=== PATIENT | female | born 1945 | race Caucasian/White ===

== ENCOUNTER → 2021-04-16 10:32 | Outpatient (CLI) | payer MEDICARE, SELFPAY ==
--- NOTE | ~2021-04-16 | MR_ITS ---
EXAMINATION: MR brain IAC wo/w con DATE: 04/16/2021 11:44 INDICATION: Dizziness and giddiness. Left-sided Meniere's disease. Left-sided hearing loss. TECHNIQUE: Magnetic resonance imaging (MRI) of the brain, brainstem, and internal auditory canals was performed without and with 10 mL MultiHance intravenous contrast. Sequences included sagittal and ax ial T1-weighted FSE, axial diffusion-weighted FS EPI, axial T2*-weighted GRE, axial T2-weighted FLAIR Propeller, axial T2-weighted Propeller, small vwoac-vh-fdzv coronal FIESTA, small cgpxu-dz-fiwp doris nal T1-weighted FSE, and small rlijd-rl-yugz axial T1-weighted SPGR. Postcontrast sequences included axial T1-weighted FSE, small rcxag-wl-enew coronal T1-weighted FSE, and small vhwjo-mk-iskk axial T1- weighted SPGR. Apparent diffusion coefficient (ADC) maps were created. COMPARISON: Brain MRI 04/14/2019 FINDINGS: There are scattered areas of nonspecific increased T2-weighted signal intensity in the cere bral white matter and natalie. Again seen is diffuse pachymeningeal thickening and enhancement. Again se en are foci of old microhemorrhage in the brain including in the deep garcia nuclei. There is no acute infarction or abnormal intracranial mass lesion. The ventricles are normal in size. There is mucosal thickening in the paranasal sinuses. Right maxillary sinus is small and completely opacified with rig ht-sided enophthalmos, consistent with silent sinus syndrome. The internal auditory canals and inner and middle ears are normal. The mastoid air cells are normal. IMPRESSION: 1. Chronic diffuse pachymeningeal thickening and enhancement. This finding is most commonly secondary to prior lumbar puncture or spine surgery. This finding may be a feature of intracranial hypertensio n. 2. Worsened moderate nonspecific cerebral white matter disease and pontine disease, which likely repr esents chronic small vessel ischemic disease. 3. Scattered foci of old microhemorrhage in the brain again seen. This finding is most commonly seen with chronic hypertensive encephalopathy. 4. Silent sinus syndrome involving left maxillary sinus. Reviewed, dictated and finalized at location A. IO CLINICIAN IMPRESSION: 1. Chronic diffuse pachymeningeal thickening and enhancement. This finding is m ost commonly secondary to prior lumbar puncture or spine surgery. This finding may be a feature of intracranial hypertension. 2. Worsened moderate nonspecific cerebral white matter disease and pontine dise ase, which likely represents chronic small vessel ischemic disease. 3. Scattered foci of old microhemorrhage in the brain again seen. This finding is most commonly seen with chronic hypertensive encephalopathy. 4. Silent sinus syndrome involving left maxillary sinus.
[2021-04-16 11:08] LABS: Estimated Glomerular Filt Rate > 60
== END ==
PROVIDERS: PCP Family Medicine; Visit Provider Otolaryngology
DX: H81.02 Meniere's disease, left ear (principal); H90.A22 Sensorineural hearing loss, unilateral, left ear, with restricted hearing on the contralateral side; R93.0 Abnormal findings on diagnostic imaging of skull and head, not elsewhere classified
CPT/HCPCS: 70553; A9577

== ENCOUNTER 2021-06-21 10:34 | Emergency (ER) | payer MEDICARE, SELFPAY ==
--- NOTE | ~2021-06-21 | CT_ITS ---
EXAMINATION: CT abdomen pelvis w con EXAM DATE: 06/21/2021 13:21 INDICATION: LLQ abd pain . TECHNIQUE: Spiral CT of the abdomen and pelvis was performed following intravenous injection of 100 m L Omnipaque 350. Axial, coronal and sagittal images of the abdomen and pelvis were reviewed. The do se-length product (DLP) for this examination was 335.67 mGy-cm. The exposure was tailored according to patient size (auto mA exposure control), and iterative reconstruction (ASIR) was used as additiona l dose reduction technique. There is no prior study for comparison. FINDINGS: There is a 1 cm cystic region in the pancreatic uncinate process. The differential diagnosi s includes pseudocyst, intraductal papillary mucinous neoplasm (IPMN), mucinous cystic neoplasm (MCN) , and the less common serous cystadenoma and neuroendocrine tumor. Correlate for history of pancreati tis. The liver, spleen, adrenal glands are unremarkable. Gallbladder is unremarkable. No biliary obstruc tion. Portal and splenic veins are patent. Kidneys enhance symmetrically. There is no hydronephros is. There is a left renal 6-7 cm cyst. The uterus is not identified and has likely been surgically r esected. The bladder is unremarkable. There is no retroperitoneal or pelvic lymphadenopathy. Ther e is mild scattered arteriosclerotic disease. The appendix is normal. Mild scattered colonic diverticulosis with possible mild acute uncomplicated diverticulitis at the descending/sigmoid colonic junction. There is small sliding gastroesophageal hi atal hernia. There is expected amount of colonic stool. No free intraperitoneal gas. The heart i s normal in size. There are no pericardial or pleural effusions. The lung bases are unremarkable. Mild thoracolumbar scoliosis. Moderate disc disease. IMPRESSION: 1. Possible mild uncomplicated descending/sigmoid colonic diverticulitis. 2. Incidental pancreatic uncinate cystic region, differential diagnosis above. Consider 1-2 year fol low-up CT or MRI. 3. Small gastroesophageal hiatal hernia. Reviewed, dictated and finalized at location A. OMER SERVICE REPRESENTATIVE TELLER IMPRESSION: 1. Possible mild uncomplicated descending/sigmoid colonic diverticulitis. 2. Incidental pancreatic uncinate cystic region, differential diagnosis above. Consider 1-2 year follow-up CT or MRI. 3. Small gastroesophageal hiatal hernia.
[2021-06-21 10:43] VITALS: BP 131/99; PULSE 102; RESP 15; TEMP 36.7; O2SAT 99
[2021-06-21] MEDS: SODIUM CHLORIDE 0.9% IV 500 ML 999 ML IV CONT (12:38)
--- NOTE | 2021-06-21 12:41 | ED.FEMALEGU ---
HPI - Female Genitourinary General Chief complaint: Urogenital-Female Stated complaint: trouble urinating Time Seen by Provider: 06/21/21 11:55 Source: patient History of Present Illness HPI Narrative: Patient presents with difficulty urinating over the past 3 days. 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 However the past 3 days has not been as effective and she took her pessary out and attempt to help herself urinate. The past 3 days she has had increased abdominal pressure but denies a pain. She reports some nausea but attributes that to her M?ni?re's which has been acting up over the past month. She denies any fevers, cough, congestion, chest pain, shortness of breath Related Data Allergies Allergy/AdvReac Type Severity Reaction Status Date / Time Sulfa (Sulfonamide Allergy Hives Verified 06/21/21 12:53 Antibiotics) Review of Systems Review of Systems: CONSTITUTIONAL: Denies fever, chills, or sweats. EYES: Denies visual changes, redness, or discharge. ENT: Denies rhinorrhea, congestion, sore throat, or otalgia. CARDIOVASCULAR: Denies chest pain, palpitations, or edema. RESPIRATORY: Denies cough or dyspnea. GASTROINTESTINAL: Denies vomiting, or diarrhea. GENITOURINARY: Denies dysuria or hematuria. SKIN: Denies rash or itching. MUSCULOSKELETAL: Denies back pain, joint pain, or myalgia. NEUROLOGIC: Denies headache, numbness, dizziness, or weakness. PSYCHIATRIC: Denies anxiety or depression. All systems reviewed & are unremarkable except as noted in HPI and below PMFSH Past Medical History Medical History (Updated 06/21/21 @ 13:55 by Kota Love MD) Bladder prolapse Social History Social History (Updated 06/21/21 @ 12:43 by Kota Love MD) Substance use: never Exam Narrative: GENERAL: Well-appearing, well-nourished, and in no acute distress. HEAD: Normocephalic, atraumatic. EYES: PERRLA and EOMI. ENT: Nares clear, no rhinorrhea or epistaxis. Mucous membranes moist. NECK: Supple. No masses. No JVD CHEST: Clear to auscultation. No respiratory distress. No wheezes rales or rhonchi HEART: Regular rate and rhythm. No murmur heard. Normal peripheral pulses. ABDOMEN: Mild tenderness to do on the left lower quadrant suprapubic area soft, nondistended, normal active bowel sounds. EXTREMITIES: Normal range of motion. No edema. SKIN: Warm, dry, no rash. NEURO: No focal deficits. Alert and oriented x3. PSYCH: Normal mood and affect. Course Reevaluation(s) Reevaluation #1: Patient reports feeling improved results and plan reviewed with patient. Patient is comfortable outpatient plan. Date: 06/21/21 Time: 13:49 Vital Signs Vital signs: Vital Signs Temperature 36.7 C 06/21/21 10:43 Pulse Rate 102 H 06/21/21 10:43 Respiratory Rate 15 06/21/21 10:43 Blood Pressure 131/99 H 06/21/21 10:43 Pulse Oximetry 99 06/21/21 10:43 Temperature 36.7 C 06/21/21 10:43 Pulse Rate 88 06/21/21 14:10 Respiratory Rate 19 06/21/21 14:10 Blood Pressure 123/88 06/21/21 14:10 Pulse Oximetry 97 06/21/21 14:10 MDM - Female Genitourinary MDM Narrative Medical decision making narrative: H&P as above, vss, pt looks clinically well, exam tenderness palpation in the left lower quadrant suprapubic area, labs with UA concerning for infection and hypokalemia, img concerning for diverticulitis, additional labs/img considered, symptomatic relief available as needed, on reevaluation pt continues to looks clinically well. Suspect UTI, diverticulitis hypokalemia related to her diuretics, dns severe sepsis, acute urinary retention, perforation, abscess. plan to tx/monitor as op w/ pcm f/u findings/plan discussed with pt, pt agree/comfortable with plan, return precautions given Lab Data Result diagrams: 06/21/21 12:35 06/21/21 12:35 Labs: Lab Results 06/21/21 06/21/21 06/21/21 Range/Units 12:35 12:35 1
[2021-06-21 12:43] LABS: Basophils Percent Auto 0.4 % (0.2-1.2); Eosinophils Percent Auto 0.1 % (0-4.4); Hemoglobin 16.2 g/dL (12.0-15.0); Immature Granulocyte Absolute 0.01 K/mm3 (0.00-0.031); Immature Granulocyte Percent A 0.1 % (0-0.5); Lymphocytes Absolute Auto 0.77 K/mm3 (0.9-3.2); Lymphocytes Percent Auto 11.1 % (18.3-44.2); Mean Corpuscular HGB Conc 33.8 g/dl (32-36); Mean Corpuscular Hemoglobin 30.5 pg (26-34); Mean Corpuscular Volume 90.2 fl (80-100); Mean Platelet Volume 10.3 fl (7.4-10.4); Monocytes Absolute Auto 0.5 K/mm3 (0.1-0.6); Monocytes Percent Auto 6.9 % (2.6-8.5); Neutrophils Absolute Auto 5.7 K/mm3 (1.3-6.7); Neutrophils Percent Auto 81.4 % (45.5-73.1); Platelet Count Result 177 k/mm3 (150-375); Red Blood Count 5.32 M/mm3 (4.2-5.4); Red Cell Distribution Width 13.1 % (11.5-14.5)
[2021-06-21 12:54] LABS: Add Urine Microscopic? YES; Appearance Urine Cloudy (Clear); Bacteria Urine Trace /hpf; Bilirubin Urine Negative (Negative); Blood Urine 1+ (Negative); Color Urine Amber (Yellow); Glucose Urine UA Negative (Negative); Ketones Urine 1+ mg/dL (Negative); Leukocyte Esterase Ur 2+ LEU/UL (Negative); Mucus Urine Moderate /lpf; Nitrate Urine Positive (Negative); Protein Urine 1+ mg/dL (Negative); Squamous Epithelial Cell Urine Rare /hpf (Few); Urobilinogen Urine Negative mg/dL (<2.0); WBC Urine 31-50 /hpf
[2021-06-21 12:58] LABS: Alanine Aminotransferase 12 U/L (4-35); Albumin Level 4.4 g/dL (3.5-5.1); Alkaline Phosphatase 81 U/L (38-126); Anion Gap 7 mmol/L (8-16); Aspartate Amino Transferase 29 U/L (14-36); Bilirubin,Total 0.6 mg/dL (0.2-1.3); Blood Urea Nitrogen 15 mg/dL (7-17); Calcium 9.6 mg/dL (8.4-10.2); Carbon Dioxide 35 mmol/L (22-30); Chloride 97 mmol/L (98-107); Estimated Glomerular Filt Rate > 60; Glucose 107 mg/dL (65-110); Lipase 94 U/L (23-300); Potassium 2.8 mmol/L (3.4-5.0); Sodium 139 mmol/L (137-145)
[2021-06-21] MEDS: POTASSIUM CHLORIDE 20 MEQ PACKET (FOR LIQUID) 40 MEQ PO (14:02)
[2021-06-21 14:10] VITALS: BP 123/88; PULSE 88; RESP 19; O2SAT 97
== END 2021-06-21 14:10 | disposition home or self-care (01) ==
PROVIDERS: Emergency Provider Emergency Medicine; PCP Family Medicine
DX: N30.01 Acute cystitis with hematuria (principal); K57.32 Diverticulitis of large intestine without perforation or abscess without bleeding; E87.6 Hypokalemia; K44.9 Diaphragmatic hernia without obstruction or gangrene
CPT/HCPCS: 36415; 74177; 80053; 81001; 83690; 85025; 87077; 87086; 87186; 96361; 96365; 99284; A9270; J0696; J7040; Q9967

== ENCOUNTER 2021-06-22 14:08 | Inpatient (IN) | payer MEDICARE, SELFPAY ==
--- NOTE | ~2021-06-22 | CT_ITS ---
EXAMINATION: CT abdomen pelvis w con DATE: 06/22/2021 16:57 INDICATION: Diverticulitis TECHNIQUE: Computed tomography (CT) of the abdomen and pelvis was performed with 100 mL Omnipaque-350 intravenous contrast. Automated exposure control and iterative reconstruction technique were employe d. The dose-length product was 248.45 mGy-cm. COMPARISON: 06/21/2021 FINDINGS: Visualized lung bases are clear. Visualized inferior heart is normal. No pericardial or pleural effus ion. Liver and bilateral adrenal glands are normal. Splenic calcification consistent with old granulo matous disease. Vicariously excreted contrast from the contrast enhanced CT from one day prior within the otherwise normal gallbladder. Again seen is a 1.1 cm cystic lesion at the uncinate process of th e pancreas. Bilateral renal cysts, subcentimeter at the right kidney and 6 cm in the left kidney. The re is moderate colonic diverticulosis with a sigmoid predominance. There is no adjacent inflammatory change to suggest diverticulitis. Small bowel and appendix are normal. Small amount of residual excr eted contrast in the bladder related to the earlier contrast-enhanced CT. The uterus is not identifie d and has likely been surgically resected. No free intraperitoneal gas or fluid. No pathologically en larged abdominal or pelvic lymphadenopathy. Mild lumbar levocurvature with moderate to severe spondyl osis. L5 is sacralized on the right. Mild to moderate bilateral hip osteoarthritis. IMPRESSION: 1. Moderate diverticulosis without specific findings of diverticulitis. No acute intra-abdominal/pelv ic process. 2. 1.1 cm cystic lesion at the uncinate process of the pancreas. Consider 1-2 year follow-up pre and postcontrast MRI or CT. Reviewed, dictated and finalized at location A. T SERVICES REPRESENTATIVE IMPRESSION: 1. Moderate diverticulosis without specific findings of diverticulitis. No acut e intra-abdominal/pelvic process. 2. 1.1 cm cystic lesion at the uncinate process of the pancreas. Consider 1-2 y ear follow-up pre and postcontrast MRI or CT.
--- NOTE | ~2021-06-22 | XR_ITS ---
EXAMINATION: XR chest 1V portable DATE: 06/23/2021 11:28 INDICATION: Pleuritic chest pain. TECHNIQUE: A single frontal view of the chest was obtained. COMPARISON: CT abdomen and pelvis 06/22/2021 FINDINGS: There is mild scarring at the lung apices. A calcified left lung nodule and calcified left hilar lymph nodes are consistent with old granulomatous disease. No pleural effusion or pneumothorax. The heart size is normal. IMPRESSION: 1. Mild scarring at the lung apices. Reviewed, dictated and finalized at location A.
[2021-06-22 14:44] VITALS: BP 126/83; RESP 18; TEMP 36.7; O2SAT 99
--- NOTE | 2021-06-22 14:53 | ED.GENADULT ---
HPI - General Adult General Chief complaint: Abdominal Pain Stated complaint: stomach tingling Time Seen by Provider: 06/22/21 14:16 Source: patient and RN notes reviewed Mode of arrival: ambulatory Limitations: no limitations History of Present Illness HPI narrative: Patient is 76 years old white female came to the emergency room because of intermittent lower abdominal tightness, shaking, tingling numbness of the hands and feet started this morning. History of M?ni?re's disease. Patient came to our emergency room yesterday and was discharged with probably uncomplicated diverticulitis, hypokalemia of potassium 2.8, and urinary tract infection. Patient was searching Google about the hypokalemia and is telling me that hypokalemia can cause tingling numbness of the hands and feet. Patient looks anxious, restless. Patient lives alone, brought to the emergency room by one of her friends. Patient is concerned about the possibility of side effect of the medication started yesterday. Related Data Allergies Allergy/AdvReac Type Severity Reaction Status Date / Time Sulfa (Sulfonamide Allergy Hives Verified 06/21/21 12:53 Antibiotics) Review of Systems Review of Systems: CONSTITUTIONAL: Denies fever, chills, or sweats. EYES: Denies visual changes, redness, or discharge. ENT: Denies rhinorrhea, congestion, sore throat, or otalgia. CARDIOVASCULAR: Denies chest pain, palpitations, or edema. RESPIRATORY: Denies cough or dyspnea. GASTROINTESTINAL: Denies abdominal pain, nausea, vomiting, or diarrhea. GENITOURINARY: Denies dysuria or hematuria. SKIN: Denies rash or itching. MUSCULOSKELETAL: Denies back pain, joint pain, or myalgia. NEUROLOGIC: Denies headache, numbness, or weakness. PSYCHIATRIC: Denies anxiety or depression. PMFSH Past Medical History Medical History Bladder prolapse Social History Social History Substance use: never Exam Narrative: General appearance: Well-developed, well-nourished Skin: Normal color Head: Normocephalic, nontraumatic Eyes: Clear conjunctiva ENT: Oropharynx normal, ears normal, nose normal Neck: Supple, nontender Chest and respiratory: Airway patent, no respiratory distress, no accessory muscle use Heart: Regular rate/rhythm Abdomen: Soft, mild diffuse tenderness left lower quadrant, no guarding or rebound, no organomegaly, quiet bowel sounds Vascular: Normal peripheral pulses, normal capillary refill. Musculoskeletal: Normal range of motion, nontender back Neurologic: Alert and oriented ?3, MARRIAGE COUNSELOR is normal as tested, no gross motor deficit Course Course Emergency Course: Stable Patient was discharged yesterday from our emergency room with a diagnosis of probably diverticulitis, urinary tract infection and the hypokalemia with potassium 2.8. Patient was discharged on Levaquin, Flagyl and potassium supplement. Woke up this morning feeling weird, jittery inside, shaking outside, presents with anxiety-like symptoms. Work-up showed no diverticulitis, increase urinary tract infection compared to yesterday, culture showed gram-negative bacilli which I believe Levaquin is not working on it. Waiting for sensitivity and susceptibility. Gram-negative bacilli usually sensitive to 4th generation of cephalosporin such as cefepime, extended spectrum beta-lactamase inhibitor penicillinase like Zosyn and most importantly Carbapenems. Patient will be admitted to the hospital for IV Invanz Vital Signs Vital signs: Vital Signs Temperature 36.7 C 06/22/21 14:44 Respiratory Rate 18 06/22/21 14:44 Blood Pressure 126/83
[2021-06-22] MEDS: SODIUM CHLORIDE 0.9% IV 1,000 ML 999 ML IV CONT (15:18)
[2021-06-22] MEDS: LORazepam INJ (*CRX) 2 MG/ML VIAL 1 MG IV PUSH (15:19)
[2021-06-22 15:29] LABS: Basophils Percent Auto 0.3 % (0.2-1.2); Eosinophils Percent Auto 0.7 % (0-4.4); Hematocrit 49.2 % (37.0-47.0); Hemoglobin 16.7 g/dL (12.0-15.0); Immature Granulocyte Absolute 0.02 K/mm3 (0.00-0.031); Immature Granulocyte Percent A 0.3 % (0-0.5); Lymphocytes Absolute Auto 0.91 K/mm3 (0.9-3.2); Lymphocytes Percent Auto 15.3 % (18.3-44.2); Mean Corpuscular HGB Conc 33.9 g/dl (32-36); Mean Corpuscular Hemoglobin 30.5 pg (26-34); Mean Corpuscular Volume 89.9 fl (80-100); Mean Platelet Volume 10.1 fl (7.4-10.4); Monocytes Absolute Auto 0.5 K/mm3 (0.1-0.6); Monocytes Percent Auto 8.6 % (2.6-8.5); Neutrophils Absolute Auto 4.5 K/mm3 (1.3-6.7); Neutrophils Percent Auto 74.8 % (45.5-73.1); Platelet Count Result 178 k/mm3 (150-375); Red Blood Count 5.47 M/mm3 (4.2-5.4); Red Cell Distribution Width 12.9 % (11.5-14.5)
[2021-06-22 15:36] LABS: Add Urine Microscopic? YES; Appearance Urine Cloudy (Clear); Bacteria Urine Trace /hpf; Bilirubin Urine Negative (Negative); Blood Urine Negative (Negative); Color Urine Amber (Yellow); Glucose Urine UA Negative (Negative); Ketones Urine 1+ mg/dL (Negative); Leukocyte Esterase Ur 3+ LEU/UL (Negative); Mucus Urine Moderate /lpf; Nitrate Urine Negative (Negative); Protein Urine 1+ mg/dL (Negative); Specific Grav Ur 1.028 (1.001-1.035); Squamous Epithelial Cell Urine Few /hpf (Few); Urobilinogen Urine Negative mg/dL (<2.0); WBC Urine >75 /hpf
[2021-06-22 16:10] LABS: Alanine Aminotransferase 12 U/L (4-35); Albumin Level 3.9 g/dL (3.5-5.1); Alkaline Phosphatase 64 U/L (38-126); Anion Gap 7 mmol/L (8-16); Aspartate Amino Transferase 23 U/L (14-36); Bilirubin,Total 0.6 mg/dL (0.2-1.3); Blood Urea Nitrogen 15 mg/dL (7-17); Carbon Dioxide 27 mmol/L (22-30); Chloride 103 mmol/L (98-107); Estimated CRCL calculation 38 ml/min; Estimated Glomerular Filt Rate > 60; Glucose 100 mg/dL (65-110); Lipase 73 U/L (23-300); Potassium 3.3 mmol/L (3.4-5.0); Sodium 137 mmol/L (137-145)
[2021-06-22 17:42] VITALS: BP 123/78; PULSE 83; RESP 18; O2SAT 99
[2021-06-22 20:03] VITALS: PULSE 80; RESP 20; TEMP 36.8; O2SAT 99
[2021-06-22] MEDS: ERTAPENEM 1 GM/NS 50 ML 1 GM/50 ML BAG IVPB (20:25)
--- NOTE | 2021-06-22 20:52 | PM.IMHP ---
H&P: HPI History of Present Illness Date/Time: Patient was placed observation status for expected length of stay less than 23 hours for management, will plan to re-evaluate tomorrow for improvement. 06/22/21 20:52 Chief Complaint: Abdominal pain Narrative: Ms. Gomez is a 76-year-old female who presented to the emergency with complaints of abdominal pain and ?shaky feeling?. Patient states she was seen in the emergency room yesterday for suprapubic pain, dysuria, and frequency. Patient states that she was diagnosed with diverticulitis, urinary tract infection, and low potassium levels. Patient states she was sent home on Levaquin and Flagyl and she started taking the antibiotics today. Patient states that she continued to have dysuria, but her frequency did mildly improve. Patient states she was continued to have abdominal pain and she was having a shaky feeling and felt like she was getting worse and decided come to the hospital. Patient states she also felt lightheaded time. Patient denies any syncopal episodes. Patient states she had occasional abdominal cramping today. Patient states she has a history of Meniere's disease, dyslipidemia, diverticulosis, and left breast fibroadenoma status post mastectomy. Patient states she does take hydrochlorothiazide for her Meniere's disease. Review of Systems Review of Systems: A 12 point review of systems was completed patient all pertinent positive and negative per HPI the remainder are unremarkable. [facility] Past Medical History Medical History (Updated 06/22/21 @ 21:21 by Dilcia Garcia APRN) Bladder prolapse Diverticulosis Dyslipidemia Fibroadenoma of left breast Menieres disease Surgical History Surgical History (Updated 06/22/21 @ 21:14 by Dilcia Garcia APRN) History of left mastectomy Social History Social History Substance use: never Meds Home Medications and Allergies Home Medications Medication Instructions Recorded Confirmed Type levofloxacin 750 mg PO DAILY 7 Days #7 tablet 06/21/21 Rx metronidazole 500 mg PO Q12H 7 Days #14 tablet 06/21/21 Rx potassium chloride 20 meq PO DAILY #30 ea 06/21/21 Rx Allergies Allergy/AdvReac Type Severity Reaction Status Date / Time Sulfa (Sulfonamide Allergy Hives Verified 06/22/21 21:24 Antibiotics) Vital Signs Vital Signs - 24 hr 06/22/21 14:44 06/22/21 17:42 06/22/21 20:03 Temperature 36.7 C 36.8 C Pulse Rate 83 80 Respiratory Rate 18 18 20 Blood Pressure 126/83 123/78 Pulse Oximetry 99 99 99 Exam Narrative: Constitutional: Patient is well-nourished in no acute distress. Patient is alert and oriented x3 HEENT: Moist mucous membranes. No scleral icterus. No lymphadenopathy. Neck: No carotid bruits noted no JVD noted Lungs: Lung sounds are clear to auscultation bilaterally. No accessory muscle use. No rhonchi, rales, or wheezes noted. Cardiovascular: Apical pulse is regular rate and rhythm. S1-S2 noted, no S3 or S4 noted. No gallops, murmurs, or rubs noted. Abdomen: Soft, round, and nontender. No palpable masses. Extremities: No edema. Nontender. Skin: No rashes or lesions. Warm and dry. Skin is intact. Neurological: No focal neurological deficits. Cranial nerves II-XII grossly intact. Psychiatric: Cooperative, appropriate mood, and affect H&P: Results Labs Labs: Short CBC 06/22/21 Range/Units 15:22 WBC 6.0 (4.5-10.0) K/mm3 Hgb 16.7 H (12.0-15.0) g/dL Hct 49.2 H (37.0-47.0) % Plt Count 178 (150-375) k/mm3 BMP 06/22/21 15:54 Sodium 137 Potassium 3.3 L Chloride 103 Carbon Dioxide 27 BUN 15 Creatinine 0.90 Glucose 100 Calcium 9.0 Liver Function 06/22/21 Range/Units 15:54 Total Bilirubin 0.6 (0.2-1.3) mg/dL AST 23 (14-36) U/L ALT 12 (4-35) U/L Alkaline Phosphatase 64 (38-126) U/L Albumin 3.9 (3.5-5.1) g/dL Urine 06/22/21 Range/
[2021-06-22 21:11] VITALS: BP 136/75; PULSE 75; RESP 18; TEMP 36.8; O2SAT 98
[2021-06-22 21:13] VITALS: BP 136/75; PULSE 98; RESP 18; TEMP 36.8; O2SAT 98
--- NOTE | 2021-06-22 21:16 | ADMGEN ---
This patient, Dunia Gomez, was admitted to 2 Medical Room [facility]-01 @ 2115. Patient/family oriented to hospital policies and general routines including ID bracelet, bed and alarms, visiting hours, pain management, procedures, bathroom and other care routines, personal items, smoking policy, room service/diet, and visiting hours. Information on how to activate the Rapid Response Team has been discussed. Patient/Family are encouraged to report perceived risks to care and to ask questions if they do not understand what they are told or what they should do.
[2021-06-22 21:38] VITALS: BP 142/73; PULSE 94; RESP 18; TEMP 36.3; O2SAT 99
--- NOTE | 2021-06-23 03:02 | PC.NURSE ---
Daylight Savings Time For Daylight Savings Time Ending in the Fall - Clocks are moved back. For Daylight Savings Time Beginning in the Spring - Clocks are moved ahead. For [facility], the time of change occurs at 0200 hrs. Time is taken from the gaming surveillance observer. This entry on the patient's chart recognizes the change in time reflected during documentation. Example: 2 entries for vital signs may be charted for 0200 hrs.
[2021-06-23 05:11] LABS: Basophils Percent Auto 0.6 % (0.2-1.2); Eosinophils Absolute Auto 0.2 K/mm3 (0-0.3); Eosinophils Percent Auto 2.8 % (0-4.4); Hematocrit 40.7 % (37.0-47.0); Hemoglobin 13.8 g/dL (12.0-15.0); Immature Granulocyte Absolute 0.01 K/mm3 (0.00-0.031); Immature Granulocyte Percent A 0.2 % (0-0.5); Lymphocytes Absolute Auto 0.89 K/mm3 (0.9-3.2); Mean Corpuscular HGB Conc 33.9 g/dl (32-36); Mean Corpuscular Hemoglobin 30.5 pg (26-34); Mean Corpuscular Volume 89.8 fl (80-100); Mean Platelet Volume 10.3 fl (7.4-10.4); Monocytes Absolute Auto 0.7 K/mm3 (0.1-0.6); Monocytes Percent Auto 10.6 % (2.6-8.5); Neutrophils Absolute Auto 4.6 K/mm3 (1.3-6.7); Neutrophils Percent Auto 71.8 % (45.5-73.1); Platelet Count Result 153 k/mm3 (150-375); Red Blood Count 4.53 M/mm3 (4.2-5.4); Red Cell Distribution Width 13.1 % (11.5-14.5); White Blood Count 6.4 K/mm3 (4.5-10.0)
[2021-06-23 05:23] LABS: Anion Gap 1 mmol/L (8-16); Blood Urea Nitrogen 11 mg/dL (7-17); Calcium 8.4 mg/dL (8.4-10.2); Carbon Dioxide 29 mmol/L (22-30); Chloride 105 mmol/L (98-107); Estimated CRCL calculation 48 ml/min; Estimated Glomerular Filt Rate > 60; Glucose 100 mg/dL (65-110); Potassium 3.4 mmol/L (3.4-5.0); Sodium 135 mmol/L (137-145)
[2021-06-23 06:09] VITALS: O2SAT 98
[2021-06-23] MEDS: POTASSIUM CHLORIDE 20 MEQ TABLET 40 MEQ PO (08:02)
[2021-06-23] MEDS: hydroCHLOROthiazide 25 MG TABLET PO (08:03)
[2021-06-23] MEDS: POTASSIUM CHLORIDE 20 MEQ TABLET.ER PO (08:03)
[2021-06-23 08:06] VITALS: RESP 18; O2SAT 98
--- NOTE | 2021-06-23 09:30 | PM.IMPN ---
Progress Note: A&P Assessment and Plan (1) Urinary tract infection: Code(s): N39.0 - Urinary tract infection, site not specified Status: Acute Assessment and Plan: UA cloudy sneha urine 3+ leukocyte esterase, WBC >75 moderate mucus UA from 06/21/21 Cloudy sneha urine, 1+ blood, Positive nitrates, 2+ leukocyte esterase 2+, WBC 31-50, moderate mucus culture from 06/21/21 shows Gram-negative bacilli Repeat culture pending Sensitivity has not returned Continue Rocephin await Sensitivity (2) Diverticulosis: Code(s): K57.90 - Diverticulosis of intestine, part unspecified, without perforation or abscess without bleeding Status: Acute Assessment and Plan: CT of abdomen and pelvis (06/22/21) did not find any colitis No further treatment for diverticulitis indicated at this time (3) Hypokalemia: Code(s): E87.6 - Hypokalemia Status: Acute Assessment and Plan: K on admission was 3.3, today 3.4 Give 40mEq PO potassium Continue to trend potassium Replace as indicated (4) Menieres disease: Code(s): H81.09 - Meniere's disease, unspecified ear Status: Acute Assessment and Plan: Reports louder than normal tinnitus Take Valium and meclizine at home Continue home medications, hydrochlorothiazide 25mg PO Daily Trend symptoms PT/OT for possible vestibular support Time Spent With Patient Time with patient: Greater than 35 minutes Subjective Date/time seen: 06/23/21 09:30 Interval history: 06/22/21 20:52 Narrative: Ms. Gomez is a 76-year-old female who presented to the emergency with complaints of abdominal pain and ?shaky feeling?. Patient states she was seen in the emergency room yesterday for suprapubic pain, dysuria, and frequency. Patient states that she was diagnosed with diverticulitis, urinary tract infection, and low potassium levels. Patient states she was sent home on Levaquin and Flagyl and she started taking the antibiotics today. Patient states that she continued to have dysuria, but her frequency did mildly improve. Patient states she was continued to have abdominal pain and she was having a shaky feeling and felt like she was getting worse and decided come to the hospital. Patient states she also felt lightheaded time. Patient denies any syncopal episodes. Patient states she had occasional abdominal cramping today. Patient states she has a history of Meniere's disease, dyslipidemia, diverticulosis, and left breast fibroadenoma status post mastectomy. Patient states she does take hydrochlorothiazide for her Meniere's disease. Date/Time 06/23/21 0930 Patient was lying in bed. Patient stated that she has been very wobbly lately. She was having some lightheadedness yesterday however that has resolved today. Patient did state that she does have a pessary and since she has had the pessary she has noticed more and more symptoms of UTI including frequency and urgency. She stated that she took her pessary out due to discomfort. Chest stated that she feels like she has a stick stuck in her side about 6 in on the left This pain sensation is make it hard for to take a deep breath or cough. She does state that she has been having some abdominal pain that she described as crampy and squeezing. She has also been treated with patent histamines for her Meniere's disease. She stated the dizziness has gone away however she does have outbreaks and which she takes 2 mg of Valium and meclizine. She states which usually kind of help so she catches it early however other times she usually has to vomit and then take the Valium as she is able to hold down her meds. However she did state that she does have nausea every day since she has been off the beta histamines. She does deny any kind of chest pain, shortness of breath, nausea, vomiting diarrhea or constipation today. Review of Systems Review of Systems: Al
[2021-06-23 13:42] VITALS: BP 107/64; PULSE 80; RESP 16; TEMP 36.5; O2SAT 99
[2021-06-23 20:54] VITALS: BP 109/62; PULSE 81; RESP 16; TEMP 36.6; O2SAT 98
[2021-06-23 23:45] VITALS: O2SAT 96
[2021-06-24 05:38] LABS: Basophils Percent Auto 0.7 % (0.2-1.2); Eosinophils Absolute Auto 0.5 K/mm3 (0-0.3); Eosinophils Percent Auto 7.6 % (0-4.4); Hematocrit 41.4 % (37.0-47.0); Hemoglobin 14.2 g/dL (12.0-15.0); Immature Granulocyte Absolute 0.02 K/mm3 (0.00-0.031); Immature Granulocyte Percent A 0.3 % (0-0.5); Lymphocytes Absolute Auto 0.96 K/mm3 (0.9-3.2); Lymphocytes Percent Auto 16.1 % (18.3-44.2); Mean Corpuscular HGB Conc 34.3 g/dl (32-36); Mean Corpuscular Hemoglobin 30.9 pg (26-34); Mean Corpuscular Volume 90.2 fl (80-100); Mean Platelet Volume 10.4 fl (7.4-10.4); Monocytes Absolute Auto 0.6 K/mm3 (0.1-0.6); Monocytes Percent Auto 9.9 % (2.6-8.5); Neutrophils Absolute Auto 3.9 K/mm3 (1.3-6.7); Neutrophils Percent Auto 65.4 % (45.5-73.1); Platelet Count Result 155 k/mm3 (150-375); Red Blood Count 4.59 M/mm3 (4.2-5.4); Red Cell Distribution Width 13.2 % (11.5-14.5)
[2021-06-24 05:47] LABS: Alanine Aminotransferase 10 U/L (4-35); Albumin Level 3.5 g/dL (3.5-5.1); Alkaline Phosphatase 56 U/L (38-126); Anion Gap 1 mmol/L (8-16); Aspartate Amino Transferase 23 U/L (14-36); Bilirubin,Total 0.4 mg/dL (0.2-1.3); Blood Urea Nitrogen 8 mg/dL (7-17); Calcium 8.6 mg/dL (8.4-10.2); Carbon Dioxide 31 mmol/L (22-30); Chloride 104 mmol/L (98-107); Estimated CRCL calculation 42 ml/min; Estimated Glomerular Filt Rate > 60; Glucose 99 mg/dL (65-110); Magnesium 1.9 mg/dL (1.6-2.3); Potassium 3.6 mmol/L (3.4-5.0); Sodium 136 mmol/L (137-145)
[2021-06-24 06:00] VITALS: BP 106/64; PULSE 72; RESP 14; TEMP 36.4; O2SAT 99
[2021-06-24] MEDS: hydroCHLOROthiazide 25 MG TABLET PO (07:47)
[2021-06-24] MEDS: POTASSIUM CHLORIDE 20 MEQ TABLET.ER PO (07:47)
--- NOTE | 2021-06-24 09:34 | PM.DS ---
DS: Admitting Diagnosis Discharge Date 06/24/2021 Admitting Diagnosis UTI DS: Discharge Diagnosis Discharge Diagnosis (1) Urinary tract infection: Code(s): N39.0 - Urinary tract infection, site not specified Status: Acute Assessment and Plan: Patient presented with abdominal discomfort and dysuria First visit to ED on 06/21/2021 with abnormal UA. Discharged home on levofloxacin Returned to the ED 24 hours later with worsened UA - cloudy sneha urine, 3+ leuk esterase, and >75 WBC. Repeat urine culture collected. She was admitted to the hospitalist service and started on IV Rocephin Urine culture from 06/21/2021 showed E coli, resistant to levofloxacin, sensitive to ceftriaxone Repeat urine culture from 06/22 was negative Continue p.o. cefdinir as an outpatient to complete 1 week of antibiotic therapy Urinary symptoms resolved (2) Diverticulosis: Code(s): K57.90 - Diverticulosis of intestine, part unspecified, without perforation or abscess without bleeding Status: Acute Assessment and Plan: CT on 06/21/2021 showed possible mild uncomplicated descending/sigmoid colonic diverticulitis Discharged from ED on metronidazole Repeat CT on 06/22/2021 showed diverticulosis without any findings of diverticulitis No further antibiotic treatment indicated Continue high-fiber diet for diverticulosis. Supportive care. Stool softeners. (3) Hypokalemia: Code(s): E87.6 - Hypokalemia Status: Acute Assessment and Plan: Potassium 3.3 on presentation Potassium was supplemented and levels improved Potassium 3.6 at time of discharge. 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 - Meniere's disease, unspecified ear Status: Acute Assessment and Plan: Patient is established with ENT in [place] Reports persistent nausea secondary to this Managed at home with hydrochlorothiazide, meclizine, and antiemetics She has outpatient follow-up with ENT scheduled in 1 month (5) Abnormal CT of the abdomen: Code(s): R93.5 - Abnormal findings on diagnostic imaging of other abdominal regions, including retroperitoneum Status: Acute Assessment and Plan: CT abdomen/pelvis on 06/21 and showed 1.1 cm cystic lesion at the uncinate process of the pancreas Recommend 1-2 year follow-up pre and post-contrast MRI or CT Outpatient follow-up with her PCP for further monitoring DS: Summary Hospital Course Hospital Course: Date of admission: 06/22/2021 Date of discharge: 06/24/2021 Dunia Gomez is a 76-year-old female with a history of diverticulosis, Meniere's disease, bladder prolapse, hyperlipidemia who presented to the emergency department on 06/22/2021 with complaints of will repeat abdominal discomfort after being evaluated in the ED 1 day prior and treated for a UTI. She was admitted to the hospitalist service for further evaluation and management. Please see above for further details. She was treated with IV antibiotics for UTI and will continue with p.o. antibiotics based on sensitivity report. Her symptoms resolved and she was feeling improved. Still complained of mild nausea which is a chronic issue for her. She was able to tolerate her diet. She felt overall improved and was comfortable with plans for discharge home. We discussed worrisome signs and symptoms for which to return and she was educated on her medications. She was discharged in hemodynamically stable condition on 06/24/2021. Status at Discharge Functional status at discharge: independent ambulation Overall status at discharge: patient is progressing back to baseline Time Spent with Patient Time attestation: Total time spent providing and/or coordinating discharge services: 40 minutes Time spent: Greater than 30 minutes Exam Narrative: General: Well-nourished, well-appearing 76 year-old female, sitting up in bed, comfortable, DAWN Mclean
[2021-06-24] MEDS: CEFDINIR 300 MG CAPSULE PO (10:18)
== END 2021-06-24 15:19 | disposition home or self-care (01) | DRG 690 ==
LOC: ANHED 14:25 → ANH2MED 20:48
PROVIDERS: Nurse Practitioner; Nurse Practitioner Adult Health; Admitting Provider Hospitalist; Emergency Provider Emergency Medicine; PCP Family Medicine; Visit Provider Internal Medicine
DX: N39.0 Urinary tract infection, site not specified (principal); K57.90 Diverticulosis of intestine, part unspecified, without perforation or abscess without bleeding; E87.6 Hypokalemia; H81.09 Meniere's disease, unspecified ear; E78.5 Hyperlipidemia, unspecified; N81.10 Cystocele, unspecified; R93.5 Abnormal findings on diagnostic imaging of other abdominal regions, including retroperitoneum
CPT/HCPCS: 36415; 71045; 74177; 80048; 80053; 81001; 83690; 83735; 85025; 87077; 87086; 87186; 96361; 96365; 96374; 96375; 97161; 99284; 99285; A9270; G0378; J0696; J1335; J2060; J7030; J7040; Q9967

== ENCOUNTER 2021-08-01 09:36 | Emergency (ER) | payer MEDICARE, SELFPAY ==
[2021-08-01] VITALS (8 sets, daily range): BP systolic 112–133; BP diastolic 75–85; PULSE 78–116; RESP 16–18; TEMP 36.6; O2SAT 95–98
[2021-08-01 10:17] LABS: Appearance Urine Clear (Clear); Bacteria Urine Trace /hpf; Bilirubin Urine Negative (Negative); Blood Urine Trace-lysed (Negative); Color Urine Yellow (Yellow); Glucose Urine UA Negative (Negative); Ketones Urine Negative (Negative); Leukocyte Esterase Ur Negative LEU/UL (Negative); Mucus Urine Rare /lpf; Nitrate Urine Negative (Negative); Protein Urine Negative (Negative); Squamous Epithelial Cell Urine Rare /hpf (Few); Urobilinogen Urine 0.2 mg/dL (<2.0); WBC Urine 0-3 /hpf
--- NOTE | 2021-08-01 10:17 | ED.FEMALEGU ---
HPI - Female Genitourinary General Chief complaint: Urogenital-Female Stated complaint: unable to urinate Time Seen by Provider: 08/01/21 09:38 Source: patient Mode of arrival: ambulatory Limitations: no limitations History of Present Illness HPI Narrative: 76 y/o female presents today for symptoms of urinary urgency and frequency. She says that this started yesterday. She has a history of bladder prolapse so she has problems with UTIs. She was admitted here about a month ago for 3 days related to UTI. She was seen at [facility] about a week an a half ago for abdominal pain. She was diagnosed with diverticulitis and has completed a course of cipro and flagyl. She says that these symptoms have improved significantly. She has been feeling blah for the past couple of days. No fever or chills. No back pain. No dysuria. She does report burning in the vaginal area and is concerned that she may also have a yeast infection. She has been having chronic dizziness since May, denies any worsening of this symptom. Related Data Home Medications Medication Instructions Recorded Confirmed hydrochlorothiazide 25 mg PO DAILY 06/22/21 06/22/21 Allergies Allergy/AdvReac Type Severity Reaction Status Date / Time Sulfa (Sulfonamide Allergy Hives Verified 08/01/21 09:47 Antibiotics) Review of Systems Constitutional: Constitutional: Denies chills and Denies fatigue Eyes: Eyes: Denies change in vision ENT: Denies sore throat Cardiovascular: Cardiovascular: Denies chest pain Respiratory: Respiratory: Denies cough and Denies dyspnea Gastrointestinal: Gastrointestinal: Denies bloating, Denies constipation, Denies diarrhea, Denies nausea and Denies vomiting Genitourinary: Genitourinary: Reports nocturia Comments: suprapubic pressure and fullness Musculoskeletal: Musculoskeletal: Denies back pain and Denies myalgias Integumentary/Breasts: Skin/Breast: Reports system reviewed and no additional complaints, except as docu Neurologic: Reports system reviewed and no additional complaints, except as documented Psychiatric: Psychiatric: Denies anxiety and Denies depression Endocrine: Endocrine: Reports no additional endocrine complaints Hematologic/Lymphatic: Hematologic/Lymphatic: Reports no additional hematologic/lymphatic complaints Allergic/Immunologic: Allergic/Immunologic: Reports no additional allergic/immunologic complaints PMFSH Past Medical History Medical History Bladder prolapse Diverticulosis Dyslipidemia Fibroadenoma of left breast Menieres disease Surgical History Surgical History History of left mastectomy Family History Family History Father CHF (congestive heart failure) Hypertension Social History Social History Smoking status: Never smoker Alcohol intake: never Substance use: never Substance use type: does not use Spiritual care concerns: No Exam Const: General: healthy appearing, no acute distress and alert Orientation/consciousness: patient oriented x3 HENMT: Head: normal to inspection Eyes: Conjunctivae: conjunctivae normal Neck: Neck: normal visual inspection Chest: Chest palpation & inspection: normal inspection of the chest Resp: Effort & Inspection: normal respiratory effort Cardio: Rate: regular rate Rhythm: regular rhythm GI: GI Palp: Yes Soft to palpation, No Tenderness to palpation present (GI) and No Guarding due to palpation present (GI) : General: Yes Bladder palpation abnormal tender and Yes no CVA tenderness Other: external vaginal erythema and inflammation Back/Spine/Pelvis: Back: no CVA tenderness Skin: General skin exam: normal color Neuro: General: patient oriented x3 Extrem: General: normal
[2021-08-01 10:18] LABS: Add Urine Microscopic? YES
[2021-08-01 10:30] LABS: Basophils Percent Auto 0.8 % (0.2-1.2); Eosinophils Percent Auto 0.6 % (0-4.4); Hematocrit 49.4 % (37.0-47.0); Hemoglobin 16.5 g/dL (12.0-15.0); Immature Granulocyte Absolute 0.02 K/mm3 (0.00-0.031); Immature Granulocyte Percent A 0.4 % (0-0.5); Lymphocytes Absolute Auto 0.67 K/mm3 (0.9-3.2); Lymphocytes Percent Auto 13.6 % (18.3-44.2); Mean Corpuscular HGB Conc 33.4 g/dl (32-36); Mean Corpuscular Hemoglobin 29.6 pg (26-34); Mean Corpuscular Volume 88.5 fl (80-100); Mean Platelet Volume 10.1 fl (7.4-10.4); Monocytes Absolute Auto 0.4 K/mm3 (0.1-0.6); Monocytes Percent Auto 7.1 % (2.6-8.5); Neutrophils Absolute Auto 3.8 K/mm3 (1.3-6.7); Neutrophils Percent Auto 77.5 % (45.5-73.1); Platelet Count Result 248 k/mm3 (150-375); Red Blood Count 5.58 M/mm3 (4.2-5.4); Red Cell Distribution Width 13.4 % (11.5-14.5); White Blood Count 4.9 K/mm3 (4.5-10.0)
[2021-08-01 10:39] LABS: Alanine Aminotransferase 21 U/L (4-35); Albumin Level 4.6 g/dL (3.5-5.1); Alkaline Phosphatase 72 U/L (38-126); Anion Gap 10 mmol/L (8-16); Aspartate Amino Transferase 33 U/L (14-36); Bilirubin,Total 0.6 mg/dL (0.2-1.3); Blood Urea Nitrogen 9 mg/dL (7-17); Calcium 9.4 mg/dL (8.4-10.2); Carbon Dioxide 29 mmol/L (22-30); Chloride 97 mmol/L (98-107); Estimated CRCL calculation 47 ml/min; Estimated Glomerular Filt Rate > 60; Glucose 123 mg/dL (65-110); Potassium 2.9 mmol/L (3.4-5.0); Sodium 136 mmol/L (137-145)
--- NOTE | 2021-08-01 11:10 | PC.NURSE ---
Patient report given to ANA ROSA Johnson. All questions answered and care of patient transferred.
[2021-08-01] MEDS: POTASSIUM CHLORIDE 20 MEQ TABLET 40 MEQ PO (11:55)
--- NOTE | 2021-08-01 12:05 | PC.NURSE ---
Pt to bathroom via w/c. States she went a lot, even more than expected
== END 2021-08-01 12:48 | disposition home or self-care (01) ==
PROVIDERS: Emergency Medicine; Emergency Provider Nurse Practitioner Family; PCP Family Medicine
DX: N76.0 Acute vaginitis (principal); E87.6 Hypokalemia; N81.10 Cystocele, unspecified; E78.5 Hyperlipidemia, unspecified; H81.09 Meniere's disease, unspecified ear; Z90.12 Acquired absence of left breast and nipple; Z87.440 Personal history of urinary (tract) infections
CPT/HCPCS: 36415; 51701; 80053; 81001; 85025; 99283; A9270

== ENCOUNTER 2021-11-25 09:50 | Outpatient (CLI) | payer MEDICARE, SELFPAY ==
--- NOTE | ~2021-11-25 | MM_ITS ---
CORRECTED REPORT Changed BI to RT. 11/25/2021 sef EXAMINATION: MM screening [place]oug RT w [place] HISTORY: Screening mammogram; status post left mastectomy TECHNIQUE: Craniocaudal and mediolateral oblique 3-D tomosynthesis images of the right breast were obtained and synthetic 2-D images were generated. CAD analysis was submitted and interpreted. COMPARISON: No prior mammogram is available for comparison at this institution. BREAST PARENCHYMAL COMPOSITION: The breasts are heterogeneously dense, which may obscure small masses. FINDINGS: Numerous benign calcifications are scattered in the right breast. There is no evidence of suspicious mass, calcification, or architectural distortion to suggest malignancy in either breast. There has been no suspicious interval change. IMPRESSION: 1. No mammographic evidence of right breast malignancy; status post left mastectomy. 2. Recommend routine screening mammography in one year. BI-RADS Category 2: Benign finding(s). Reviewed, dictated and finalized at location A. MTDD IMPRESSION: 1. No mammographic evidence of right breast malignancy; status post left mastec rosemarie. 2. Recommend routine screening mammography in one year. BI-RADS Category 2: Benign finding(s).
--- NOTE | ~2021-11-25 | DEXA_ITS ---
Bone Density Report Name: JOHN MITCHELL Age: 76 Sex: Female Ethnicity: White Date of : 1945 Indication: postmenopausal; screening for osteoporosis; height loss; inflammatory bowel disease; Referring Provider: GEOFFREY, CYNTHIA Garcia Study: Bone densitometry was performed. Exam Date: November 25, 2021 Accession number: [id number] Bone Density: Region BMD T-score Z-score Classification AP Spine(L1-L4) 0.900 -1.3 1.2 Osteopenia Femoral Neck (Left) 0.598 -2.3 -0.1 Osteopenia Total Hip (Left) 0.663 -2.3 -0.3 Osteopenia Femoral Neck (Right) 0.550 -2.7 -0.5 Osteoporosis Total Hip (Right) 0.655 -2.4 -0.4 Osteopenia Total Hip Mean 0.659 -2.4 -0.4 Osteopenia World Health Organization criteria for BMD impression classify patients as: Normal (T-score at or above -1.0), Osteopenia (T-score between -1.0 and -2.5), or Osteoporosis (T-score at or below -2.5). 10-year Fracture Risk: FRAX not reported because: Some T-score for Spine Total or Hip Total or Femoral Neck at or below -2.5 Clinical Information Provided by Patient: Has used the following medications: Vitamin D, Calcium Has the following medical conditions: Inflammatory bowel diseases Patient maximum height was 64 Menopause Age: 51 Drinks caffeinated beverages Onset of menses at age 12 Number of children 4 Impression: UNAPPROVED The patient has osteoporosis, based on the Right Femoral Neck T-score. Discussion: UNAPPROVED INCREASED RISK OF FRACTURE. BONE DENSITY IS UNDESIRABLY LOW AT ONE OR MORE SKELETAL SITES, CONSISTENT WITH POSTMENOPAUSAL OSTEOPOROSIS. This patient's lowest T-score meets the World Health Organization's (WHO) criteria for osteoporosis at one or more sites (T-score -2.5 or below). In untreated patients, the risk of osteoporotic fracture increases approximately two-fold for each 1.0 SD decrease in T-score. Low bone density is not the only risk factor for fracture; also consider factors such as patient's age, frailty or poor health, risk of falling, risk of injury, previous osteoporotic fracture, family history of osteoporosis, cigarette smoking, low body weight, etc. Not everyone with low bone mineral density has osteoporosis; osteomalacia and other metabolic bone disorders should also be considered. Patients who have osteoporosis should be evaluated for specific diseases and conditions (secondary causes) that may cause or contribute to bone loss. The [place] [employer]ocrin[employer] (AACE) and National Osteoporosis Foundation (NOF) recommend pharmacologic intervention for all postmenopausal women whose T-score is in this range. The patient should follow a healthful lifestyle (good nutrition with adequate calcium and vitamin D, and appropriate weight-bearing exercise). Follow-Up: UNAPPROVED Consider a repeat BMD and Verteb
== END 2021-11-25 09:51 | disposition home or self-care (01) ==
LOC: ANHIMG 09:53
PROVIDERS: PCP Family Medicine; Visit Provider Family Medicine
DX: Z12.31 Encounter for screening mammogram for malignant neoplasm of breast (principal); Z78.0 Asymptomatic menopausal state; M85.88 Other specified disorders of bone density and structure, other site; M85.852 Other specified disorders of bone density and structure, left thigh; M85.851 Other specified disorders of bone density and structure, right thigh; M81.0 Age-related osteoporosis without current pathological fracture
CPT/HCPCS: 77063; 77067; 77080

== ENCOUNTER 2022-02-14 09:46 | Outpatient (CLI) | payer MEDICARE, SELFPAY ==
--- NOTE | ~2022-02-14 | CT_ITS ---
EXAMINATION: CT diagnostic chest wo con DATE: 02/14/2022 10:07 INDICATION: SOLITARY PULM NODULE TECHNIQUE: Computed tomography (CT) of the chest was performed without intravenous contrast. Addition al 3D reconstructions utilizing coronal maximum intensity projection (MIP) were performed. Automated exposure control and iterative reconstruction technique were employed. The dose-length product was 15 0.92 mGy-cm. COMPARISON: None FINDINGS: Moderate biapical pleural-parenchymal scarring. Subtle central calcification within a 6 mm nodule at the left apex. More densely calcified nodules in the lingula and left lower lobe along with calcified left hilar and mediastinal lymph nodes and multiple hepatic and splenic calcifications, all consiste nt with old granulomatous disease. Cluster of small nodules in the largest measuring 6 x 3 mm located peripheral to a dilated bronchus in the posterior right lower lobe which are most likely infectious/ inflammatory in etiology. No other suspicious pulmonary nodules. No pulmonary edema, pleural effusion or pneumothorax. Heart size is normal. Atherosclerotic coronary artery calcific location. No pericar dial effusion. No pathologically enlarged thoracic lymphadenopathy. Status post left mastectomy. 6.3 cm cyst at the upper pole of the left kidney. Multiple old healed posterior right rib fractures. IMPRESSION: 1. Cluster of small nodules peripheral to a dilated bronchus in the right lower lobe, the largest aroldo suring 6 x 3 mm which are most likely infectious/inflammatory in etiology. If the patient is low risk for lung cancer, no follow-up is needed. If the patient is high risk (i.e., history of smoking or as bestos or significant radiation exposure), optional follow-up chest CT could be considered at [facility]. Reviewed, dictated and finalized at location B. IMPRESSION: 1. Cluster of small nodules peripheral to a dilated bronchus in the right lower lobe, the largest measuring 6 x 3 mm which are most likely infectious/inflamma tory in etiology. If the patient is low risk for lung cancer, no follow-up is n eeded. If the patient is high risk (i.e., history of smoking or asbestos or sig nificant radiation exposure), optional follow-up chest CT could be considered a t 12 months.
== END 2022-02-14 09:47 | disposition home or self-care (01) ==
PROVIDERS: PCP Family Medicine
DX: R91.1 Solitary pulmonary nodule (principal); R91.8 Other nonspecific abnormal finding of lung field
CPT/HCPCS: 71250